=== PATIENT | female | born 1955 | race Caucasian/White ===

== ENCOUNTER → 2023-09-05 12:12 | Outpatient (CLI) | payer MEDICARE, OTHER, SELFPAY ==
--- NOTE | 2023-09-05 | DI.MRI.S_ITS ---
PROCEDURE: MR FOOT RT WO CON INDICATIONS: seasamoiditis/ plantar first MTP/ No pain at dorsa TECHNIQUE: Noncontrast sagittal T1 spin echo and T2 fast spin echo with fat saturation, long-axis T1 spin echo and T2 fast spin echo with fat saturation, short-axis T1 spin echo and T2 fast spin echo with fat saturation through the forefoot. COMPARISON: [facility], CR, XR FOOT 3 VIEWS WEIGHT BEARING RIGHT, 09/01/2023, 14:05. FINDINGS: Image quality: Excellent. Bones and joints: No bone marrow contusions or metatarsal stress fractures. The sesamoid bones appear in expected positions, without internal edema. Severe degenerative changes are seen at the 1st metatarsophalangeal joint with cartilage loss, subchondral edema, and small bulky marginal osteophytes. Metatarsal sesamoid degenerative changes are also present. Mild scattered degenerative changes are seen at the interphalangeal joints of the toes. Soft tissues: Mild fluid is seen along the extensor digitorum tendons at the level of the ankle, suspicious for tenosynovitis. Mildly increased T2-weighted signal is seen within the flexor digitorum brevis muscle and the abductor hallucis muscle, possibly representing low-grade strains versus mild or early denervation changes. The visualized plantar foot muscles otherwise demonstrate normal signal and bulk. Visualized flexor and extensor tendons otherwise appear intact, without tenosynovitis. The distal insertions of the peroneus brevis and longus tendons appear intact. The principal Lisfranc ligament appears intact. No interdigital mass is seen. Sagittal images demonstrate no evidence for plantar plate tears. IMPRESSION: 1. Severe osteoarthrosis at the 1st metatarsophalangeal joint and moderate metatarsosesamoid degenerative changes. No acute osseous abnormality. 2. Mild edema within the abductor hallucis and flexor digitorum brevis muscles is suspicious for low-grade strains versus mild or early denervation changes or myositis. 3. Focal fluid along the extensor digitorum tendons at the level of the ankle may indicate tenosynovitis. Approved by: Nick Rubio M.D. on 09/07/2023 at 10:53
== END ==
PROVIDERS: PCP Student in an Organized Health Care Education/Training Program; Referring Provider Orthopaedic Surgery Foot and Ankle Surgery; Visit Provider Orthopaedic Surgery Foot and Ankle Surgery
DX: M79.671 Pain in right foot (principal); M19.071 Primary osteoarthritis, right ankle and foot; M25.474 Effusion, right foot
CPT/HCPCS: 73718